=== PATIENT | male | born 1960 | race Caucasian/White ===

== ENCOUNTER 2017-07-23 14:23 | Inpatient (IN) | payer BC, OTHER ==
[2017-07-23 15:02] LABS: ADD MAN DIFF? NO
[2017-07-23 15:04] LABS: BASOPHIL # 0.1 10^3/ul (0.0-0.1); BASOPHILS % 0.8 % (0.0-2.0); EOSINOPHILS # 0.3 10^3/ul (0.0-0.5); EOSINOPHILS % 2.7 % (0.0-7.0); HEMATOCRIT 53.8 % (42.0-52.0); HEMOGLOBIN 18.6 g/dl (14.0-18.0); LYMPHOCYTES # 3.3 10^3/ul (0.8-2.9); LYMPHOCYTES % 33.7 % (15.0-51.0); MEAN CORPUSCULAR HEMOGLOBIN 33.6 pg (29.0-33.0); MEAN CORPUSCULAR HGB CONC 34.6 g/dl (32.0-37.0); MEAN CORPUSCULAR VOLUME 97.1 fl (82.0-101.0); MEAN PLATELET VOLUME 11.5 fl (7.4-10.4); MONOCYTE # 1.2 10^3/ul (0.3-0.9); MONOCYTES % 12.6 % (0.0-11.0); NEUTROPHIL # 4.8 10^3/ul (1.6-7.5); NEUTROPHILS % 49.7 % (39.0-77.0); PLATELET COUNT 153 10^3/UL (140-415); RED BLOOD COUNT 5.54 10^6/ul (4.70-6.10); RED CELL DISTRIBUTION WIDTH 11.6 % (11.5-14.5)
[2017-07-23 15:04] LABS: WHITE BLOOD COUNT 9.7 10^3/ul (4.8-10.8)
[2017-07-23] MEDS: DILTIAZEM 50 MG INJ IV (15:32)
[2017-07-23 15:34] LABS: ALANINE AMINOTRANSFERASE 54 IU/L (13-69); ALBUMIN/GLOBULIN RATIO 1.21; ALKALINE PHOSPHATASE 105 IU/L (42-121); ANION GAP 15 (8-16); ASPARTATE AMINO TRANSFERASE 65 IU/L (15-46); BILIRUBIN,INDIRECT 0.4 mg/dl (0-1.1); BILIRUBIN,TOTAL 0.4 mg/dl (0.2-1.3); BLOOD UREA NITROGEN 13 mg/dl (7-20); CALCIUM 9.4 mg/dl (8.4-10.2); CARBON DIOXIDE 25 mmol/L (21-31); CHLORIDE 109 mmol/L (97-110); CREATININE 0.86 mg/dl (0.61-1.24); GLUCOSE 102 mg/dl (70-220); MAGNESIUM 1.9 mg/dl (1.7-2.5); POTASSIUM 4.4 mmol/L (3.5-5.1); SODIUM 145 mmol/L (135-144); TOTAL PROTEIN 7.3 g/dl (6.1-8.1)
[2017-07-23] MEDS: DILTIAZEM-D5W 125MG/125ML DRIP 125 ML IV (15:34)
[2017-07-23] MEDS: DILTIAZEM 25 MG INJ IV (15:45)
[2017-07-23 15:57] LABS: TROPONIN-I < 0.012 ng/ml (0.00-0.12)
[2017-07-23 17:47] LABS: THYROID STIMULATING HORMONE 0.999 MIU/L (0.465-4.680)
[2017-07-23] MEDS ORDERED: NACL 0.9% 3 ML SYG IV (18:00)
[2017-07-23] MEDS ORDERED: ONDANSETRON 4 MG INJ IV (18:00)
[2017-07-23] MEDS ORDERED: ACETAMINOPHEN 325 MG TAB PO (18:00)
[2017-07-23] MEDS: SOD CHLORIDE 0.9% 500 ML IV (18:20)
[2017-07-23] MEDS: OXYCODONE/ACETAMINOPHEN (5/325) TAB PO ×2 (19:03→23:33)
[2017-07-23] MEDS: CYCLOBENZAPRINE 10 MG TAB PO (21:00)
[2017-07-23] MEDS: GABAPENTIN 300 MG CAP PO (21:00)
[2017-07-23] MEDS: METOPROLOL 50 MG TAB PO (21:00)
[2017-07-23] MEDS: APIXABAN 5 MG TABLET PO (21:00)
[2017-07-24] MEDS: OXYCODONE/ACETAMINOPHEN (5/325) TAB PO ×3 (06:09→21:06)
[2017-07-24 07:43] LABS: ANION GAP 15 (8-16); BLOOD UREA NITROGEN 15 mg/dl (7-20); CALCIUM 8.8 mg/dl (8.4-10.2); CARBON DIOXIDE 28 mmol/L (21-31); CHLORIDE 103 mmol/L (97-110); CREATININE 0.78 mg/dl (0.61-1.24); GLUCOSE 106 mg/dl (70-220); MAGNESIUM 1.7 mg/dl (1.7-2.5); POTASSIUM 4.2 mmol/L (3.5-5.1); SODIUM 142 mmol/L (135-144)
[2017-07-24] MEDS: METOPROLOL 50 MG TAB PO ×3 (08:27→21:00)
[2017-07-24] MEDS: CYCLOBENZAPRINE 10 MG TAB PO ×3 (08:28→20:58)
[2017-07-24] MEDS: APIXABAN 5 MG TABLET PO ×2 (08:29→21:00)
[2017-07-24] MEDS: MAGNESIUM SULFATE 2 GM/50 ML 50 ML IVPB (10:13)
[2017-07-24] MEDS: DILTIAZEM-D5W 125MG/125ML DRIP 125 ML IV (10:15)
[2017-07-24] MEDS ORDERED: DILTIAZEM 60 MG TAB PO (14:00)
[2017-07-24] MEDS: DILTIAZEM 60 MG TAB PO (18:02)
[2017-07-24] MEDS: GABAPENTIN 300 MG CAP PO (20:58)
[2017-07-25] MEDS: DILTIAZEM-D5W 125MG/125ML DRIP 125 ML IV ×2 (02:18→18:08)
[2017-07-25] MEDS: DILTIAZEM 60 MG TAB PO ×3 (06:17→12:38)
[2017-07-25 07:41] LABS: ADD MAN DIFF? NO
[2017-07-25 07:52] LABS: BASOPHILS % 0.3 % (0.0-2.0); EOSINOPHILS # 0.3 10^3/ul (0.0-0.5); EOSINOPHILS % 3.8 % (0.0-7.0); HEMATOCRIT 52.2 % (42.0-52.0); LYMPHOCYTES # 1.5 10^3/ul (0.8-2.9); LYMPHOCYTES % 21.2 % (15.0-51.0); MEAN CORPUSCULAR HEMOGLOBIN 33.6 pg (29.0-33.0); MEAN CORPUSCULAR HGB CONC 34.5 g/dl (32.0-37.0); MEAN CORPUSCULAR VOLUME 97.6 fl (82.0-101.0); MONOCYTES % 13.6 % (0.0-11.0); NEUTROPHIL # 4.4 10^3/ul (1.6-7.5); NEUTROPHILS % 60.8 % (39.0-77.0); PLATELET COUNT 121 10^3/UL (140-415); RED BLOOD COUNT 5.35 10^6/ul (4.70-6.10); RED CELL DISTRIBUTION WIDTH 11.6 % (11.5-14.5)
[2017-07-25 07:52] LABS: WHITE BLOOD COUNT 7.3 10^3/ul (4.8-10.8)
[2017-07-25 08:09] LABS: ANION GAP 10 (8-16); BLOOD UREA NITROGEN 14 mg/dl (7-20); CALCIUM 8.6 mg/dl (8.4-10.2); CARBON DIOXIDE 29 mmol/L (21-31); CHLORIDE 107 mmol/L (97-110); GLUCOSE 114 mg/dl (70-220); POTASSIUM 4.1 mmol/L (3.5-5.1); SODIUM 142 mmol/L (135-144)
[2017-07-25] MEDS: APIXABAN 5 MG TABLET PO ×2 (08:54→20:12)
[2017-07-25] MEDS: CYCLOBENZAPRINE 10 MG TAB PO ×3 (08:54→20:12)
[2017-07-25] MEDS: METOPROLOL 50 MG TAB PO ×3 (08:55→20:11)
[2017-07-25] MEDS: OXYCODONE/ACETAMINOPHEN (5/325) TAB PO ×2 (12:42→20:18)
[2017-07-25] MEDS: REGADENOSON 0.4 MG/5 ML SYG (14:30)
[2017-07-25] MEDS: FAMOTIDINE 20 MG TAB PO ×2 (15:33→20:12)
[2017-07-25] MEDS: ATORVASTATIN 20 MG TAB PO (20:12)
[2017-07-25] MEDS: GABAPENTIN 300 MG CAP PO (20:12)
[2017-07-25] MEDS: DILTIAZEM (CD) 120 MG CAP PO (20:12)
[2017-07-26 08:26] LABS: ADD MAN DIFF? NO
[2017-07-26 08:33] LABS: BASOPHILS % 0.5 % (0.0-2.0); EOSINOPHILS # 0.3 10^3/ul (0.0-0.5); HEMATOCRIT 53.6 % (42.0-52.0); HEMOGLOBIN 18.4 g/dl (14.0-18.0); LYMPHOCYTES # 1.8 10^3/ul (0.8-2.9); MEAN CORPUSCULAR HEMOGLOBIN 33.7 pg (29.0-33.0); MEAN CORPUSCULAR HGB CONC 34.3 g/dl (32.0-37.0); MEAN CORPUSCULAR VOLUME 98.2 fl (82.0-101.0); MONOCYTES % 13.3 % (0.0-11.0); NEUTROPHIL # 4.4 10^3/ul (1.6-7.5); NEUTROPHILS % 57.7 % (39.0-77.0); PLATELET COUNT 126 10^3/UL (140-415); RED BLOOD COUNT 5.46 10^6/ul (4.70-6.10)
[2017-07-26 08:33] LABS: WHITE BLOOD COUNT 7.7 10^3/ul (4.8-10.8)
[2017-07-26 08:59] LABS: PHOSPHORUS 2.3 mg/dl (2.5-4.9)
[2017-07-26 08:59] LABS: ANION GAP 9 (8-16); BLOOD UREA NITROGEN 17 mg/dl (7-20); CALCIUM 9.1 mg/dl (8.4-10.2); CARBON DIOXIDE 31 mmol/L (21-31); CHLORIDE 107 mmol/L (97-110); CREATININE 0.92 mg/dl (0.61-1.24); GLUCOSE 95 mg/dl (70-220); MAGNESIUM 1.9 mg/dl (1.7-2.5); POTASSIUM 4.4 mmol/L (3.5-5.1); SODIUM 143 mmol/L (135-144)
[2017-07-26] MEDS: FAMOTIDINE 20 MG TAB PO ×2 (09:09→20:03)
[2017-07-26] MEDS: CYCLOBENZAPRINE 10 MG TAB PO ×3 (09:10→20:03)
[2017-07-26] MEDS: APIXABAN 5 MG TABLET PO ×2 (09:10→20:03)
[2017-07-26] MEDS: DILTIAZEM (CD) 120 MG CAP PO ×2 (09:10→20:04)
[2017-07-26] MEDS: METOPROLOL 50 MG TAB PO ×2 (09:11→20:04)
[2017-07-26] MEDS: OXYCODONE/ACETAMINOPHEN (5/325) TAB PO (09:14)
[2017-07-26] MEDS: DILTIAZEM-D5W 125MG/125ML DRIP 125 ML IV (11:38)
[2017-07-26] MEDS: AMIODARONE 150MG/D5W BOLUS 100 ML IV (16:26)
[2017-07-26] MEDS: AMIODARONE 900 MG in DEXTROSE 5% 482 ML IV (16:43)
[2017-07-26] MEDS: MAGNESIUM SULFATE 2 GM/50 ML 50 ML IVPB (16:50)
[2017-07-26] MEDS: GABAPENTIN 300 MG CAP PO (20:02)
[2017-07-26] MEDS: ATORVASTATIN 20 MG TAB PO (20:03)
[2017-07-27] MEDS: DILTIAZEM-D5W 125MG/125ML DRIP 125 ML IV (04:18)
[2017-07-27] MEDS: APIXABAN 5 MG TABLET PO (09:01)
[2017-07-27] MEDS ORDERED: FENTAnyl 50 MCG/ML VIAL (09:52)
[2017-07-27] MEDS ORDERED: MIDAZOLAM 1 MG/ML 2 ML INJ (09:52)
[2017-07-27] MEDS ORDERED: ETOMIDATE 20 MG INJ (09:52)
[2017-07-27] MEDS ORDERED: LIDOCAINE 1% (MDV) 20 ML INJ (09:53)
[2017-07-27] MEDS ORDERED: PROPOFOL 20 ML (09:54)
[2017-07-27] MEDS ORDERED: MEPERIDINE 25 MG INJ IV (10:00)
[2017-07-27] MEDS ORDERED: HYDROmorphONE (0.2 MG/ML) 10ML SYG IV (10:00)
[2017-07-27] MEDS ORDERED: PROCHLORPERAZINE 10 MG INJ IV (10:00)
[2017-07-27] MEDS ORDERED: ONDANSETRON 4 MG INJ IV (10:00)
[2017-07-27] MEDS ORDERED: DIPHENHYDRAMINE 50 MG INJ IV (10:00)
[2017-07-27] MEDS: OXYCODONE/ACETAMINOPHEN (5/325) TAB PO (11:46)
[2017-07-27] MEDS: CYCLOBENZAPRINE 10 MG TAB PO ×2 (11:46→12:09)
[2017-07-27] MEDS: FAMOTIDINE 20 MG TAB PO (11:46)
[2017-07-27] MEDS: METOPROLOL 50 MG TAB PO (11:47)
[2017-07-27] MEDS: AMIODARONE 200 MG TAB PO (11:49)
[2017-07-28] MEDS ORDERED: LISINOPRIL 5 MG TAB PO (09:00)
== END 2017-07-27 18:30 | disposition home or self-care (01) | DRG 310 ==
LOC: E/R 14:23 → TEL 17:44
PROC: 5A2204Z Restoration of Cardiac Rhythm, Single (ICD-10-PCS; principal; 2017-07-27 09:10)
PROC: B245ZZ4 Ultrasonography of Left Heart, Transesophageal (ICD-10-PCS; 2017-07-27 09:10)
DX: I48.2 Chronic atrial fibrillation (principal); D75.1 Secondary polycythemia; I42.9 Cardiomyopathy, unspecified; I10 Essential (primary) hypertension; M10.9 Gout, unspecified; F41.9 Anxiety disorder, unspecified; G89.29 Other chronic pain; I34.0 Nonrheumatic mitral (valve) insufficiency; Z91.14 Patient's other noncompliance with medication regimen; Z79.01 Long term (current) use of anticoagulants
CPT/HCPCS: 36415; 71045; 78452; 80048; 80053; 83735; 84100; 84443; 84484; 85025; 92960; 93005; 93017; 93306; 93312; 93320; 96374; 96376; 99291-25